=== PATIENT | female | born 1985 | race Caucasian/White ===

== ENCOUNTER 2019-01-01 11:22 | Emergency (ER) | payer OTHER ==
[2004-09-22 19:26] VITALS: BP 115/65
[~2019-01-01] VITALS: Ht 157.5 cm; Wt 78.6 kg
[~2019-01-01 11:22] MED LIST: BIRTH CONTROL PILL; FIORICET W/CODE1 CA1 PO; MOTRIN 600600 MG/TAB PO; NORCO 325 MG-51 TAB PO
[2019-01-01 11:36] VITALS: BP 138/76; TEMP 97.8
[2019-01-01 12:55] VITALS: PULSE 84
== END 2019-01-01 13:00 | disposition home or self-care (01) ==
LOC: COL.ER 11:22
DX: R05 Cough (principal); R50.9 Fever, unspecified

== ENCOUNTER 2019-01-31 12:46 | Emergency (ER) | payer OTHER ==
[2004-09-22 19:26] VITALS: BP 115/65
[~2019-01-31] VITALS: Ht 157.5 cm; Wt 78.2 kg
[2019-01-31 13:01] VITALS: TEMP 97.7
[2019-01-31 14:46] LABS: BASO # 0.1 (0.0-0.2); BASO % 0.6 % (0.0-2.0); EOS # 0.2 (0.0-0.7); EOS % 1.9 % (0-4.0); GRAN # 4.7 (1.4-6.5); GRAN % 60.6 % (42.2-75.2); HEMATOCRIT 38.9 % (37.0-47.0); HEMOGLOBIN 12.7 g/dl (12.5-16.0); LYMPH # 2.3 (1.2-3.4); LYMPH % 29.8 % (20.0-51.0); MEAN CELL VOLUME 88 fl (80.0-100.0); MEAN CORPUSCULAR HEMOGLOBIN 29 pg (27.0-31.0); MEAN CORPUSCULAR HGB CONC 33 g/dl (33.0-37.0); MEAN PLATELET VOLUME 9.2 fl (7.4-10.4); MONO # 0.5 (0.1-0.6); MONO % 6.8 % (1.7-9.3); PLATELET COUNT 289 K/mm3 (130-400); RED BLOOD COUNT 4.41 M/mm3 (4.10-5.30); REDCELL DISTRIBUTION WIDTH-CV 13.3 % (11.5-14.5)
[2019-01-31 14:53] LABS: COLLECTION METHOD CLEAN CATCH
[2019-01-31 15:00] LABS: MUCOUS Present /lpf; PH 6 (5-8); SQUAMOUS EPITHELIAL 0-2 /hpf; URINE APPEARANCE Clear; URINE BACTERIA Rare /hpf; URINE BILIRUBIN Negative (NEGATIVE); URINE BLOOD Negative (NEGATIVE); URINE COLOR Yellow; URINE GLUCOSE Negative (NEGATIVE); URINE KETONE Negative (NEGATIVE); URINE LEUKOCYTE ESTERASE Negative (NEGATIVE); URINE NITRATE Negative (NEGATIVE); URINE PROTEIN(semi-quant) Negative (NEGATIVE); URINE RBC 0-2 /hpf; URINE UROBILINOGEN Negative (NEGATIVE)
[2019-01-31 15:01] LABS: ALBUMIN 4.5 gm/dL (3.5-5.0); BILIRUBIN,TOTAL 0.4 mg/dL (0.0-1.0); C-REACTIVE PROTEIN 1.5 mg/dL (0.0-0.9); CALCIUM 9.1 mg/dL (8.4-10.2); CREATININE, serum 0.84 (0.52-1.25); POTASSIUM 3.7 mmol/L (3.4-5.0); TOTAL PROTEIN 7.3 gm/dL (6.4-8.2)
[2019-01-31] MEDS ORDERED: PROMETHAZINE12.5 M5 PO (16:31)
[2019-01-31] MEDS ORDERED: BENTYL 20MG20 MG/TAB PO (16:31)
[2019-01-31 17:05] VITALS: BP 107/65; PULSE 77
== END 2019-01-31 17:05 | disposition home or self-care (01) ==
LOC: COL.ER 12:46
PROVIDERS: Physician Assistant
DX: R11.2 Nausea with vomiting, unspecified (principal); R19.7 Diarrhea, unspecified; R10.30 Lower abdominal pain, unspecified; G43.909 Migraine, unspecified, not intractable, without status migrainosus; F17.210 Nicotine dependence, cigarettes, uncomplicated; Z90.710 Acquired absence of both cervix and uterus; Z88.5 Allergy status to narcotic agent
CPT/HCPCS: J2550; J7030

== ENCOUNTER 2019-04-09 10:12 | Emergency (ER) | payer OTHER ==
[2004-09-22 19:26] VITALS: BP 115/65
[~2019-04-09] VITALS: Ht 157.5 cm; Wt 76.8 kg
[~2019-04-09 10:12] MED LIST changes: +BENTYL 20MG20 MG/TAB PO; +PROMETHAZINE12.5 M5 PO
[2019-04-09 10:18] VITALS: BP 132/69; TEMP 97.7
[2019-04-09 11:49] VITALS: PULSE 100
== END 2019-04-09 11:50 | disposition home or self-care (01) ==
LOC: COL.ER 10:12
DX: J10.1 Influenza due to other identified influenza virus with other respiratory manifestations (principal); E06.3 Autoimmune thyroiditis; Z79.1 Long term (current) use of non-steroidal anti-inflammatories (NSAID); Z88.8 Allergy status to other drugs, medicaments and biological substances

== ENCOUNTER 2020-01-28 10:38 | Emergency (ER) | payer OTHER ==
[2004-09-22 19:26] VITALS: BP 115/65
[~2020-01-28] VITALS: Ht 157.5 cm; Wt 72.2 kg
[~2020-01-28 10:38] MED LIST changes: +ADDERALL XR25 MG PO; +ESTRACE0.5 MG PO; +LEVAQUIN 5500 MG/TA1 PO; +LITHIUM CA150 MG/CAP PO; +PROZAC 20MG20 MG PO; +SYNTHROID0.1 MG/TAB PO; +TOPAMAX200 MG PO; +TUSS PO; +VITAMIN D 1001000 IU PO; +XANAX .25M0.25 MG/TA PO
[2020-01-28 12:15] LABS: COLLECTION METHOD CLEAN CATCH
[2020-01-28 12:18] LABS: BASO # 0.1 (0.0-0.2); BASO % 0.7 % (0.0-2.0); EOS # 0.2 (0.0-0.7); EOS % 1.9 % (0-4.0); GRAN # 7.2 (1.4-6.5); GRAN % 75.3 % (42.2-75.2); HEMOGLOBIN 13.4 g/dl (12.5-16.0); LYMPH # 1.6 (1.2-3.4); LYMPH % 16.6 % (20.0-51.0); MEAN CELL VOLUME 87 fl (80.0-100.0); MEAN CORPUSCULAR HEMOGLOBIN 28 pg (27.0-31.0); MEAN CORPUSCULAR HGB CONC 33 g/dl (33.0-37.0); MEAN PLATELET VOLUME 9.3 fl (7.4-10.4); MONO # 0.5 (0.1-0.6); MONO % 5.2 % (1.7-9.3); PLATELET COUNT 388 K/mm3 (130-400); RED BLOOD COUNT 4.73 M/mm3 (4.10-5.30); REDCELL DISTRIBUTION WIDTH-CV 12.7 % (11.5-14.5)
[2020-01-28 12:23] LABS: MUCOUS Present /lpf; PH 5 (5-8); SQUAMOUS EPITHELIAL 0-2 /hpf; URINE APPEARANCE Hazy; URINE BACTERIA Rare /hpf; URINE BILIRUBIN Negative (NEGATIVE); URINE BLOOD Negative (NEGATIVE); URINE COLOR Yellow; URINE GLUCOSE Negative (NEGATIVE); URINE KETONE Negative (NEGATIVE); URINE LEUKOCYTE ESTERASE Negative (NEGATIVE); URINE NITRATE Negative (NEGATIVE); URINE PROTEIN(semi-quant) Negative (NEGATIVE); URINE RBC 0-2 /hpf; URINE UROBILINOGEN Negative (NEGATIVE)
[2020-01-28 12:41] LABS: ALBUMIN 4.7 gm/dL (3.5-5.0); BILIRUBIN,TOTAL 0.5 mg/dL (0.0-1.0); C-REACTIVE PROTEIN 1.4 mg/dL (0.0-0.9); CALCIUM 8.8 mg/dL (8.4-10.2); CREATININE, serum 0.85 (0.52-1.25); POTASSIUM 3.6 mmol/L (3.4-5.0); TOTAL PROTEIN 7.6 gm/dL (6.4-8.2)
[2020-01-28] MEDS ORDERED: ZITHROMAX Z PA250 MG PO (13:31)
[2020-01-28] MEDS ORDERED: PROAIR HFA0.09 MG/AC IH (13:31)
[2020-01-28] MEDS ORDERED: ZOFRAN ODT4 MG PO ×2 (13:31)
[2020-01-28] MEDS ORDERED: PREDNISONE20 MG PO (13:31)
[2020-01-28 13:52] VITALS: BP 114/68; PULSE 74; TEMP 98
[2020-01-28] MEDS ORDERED: PHENERGAN 25 TA25 MG PO (15:49)
== END 2020-01-28 13:55 | disposition home or self-care (01) ==
LOC: COL.ER 10:38
PROVIDERS: Nurse Practitioner
DX: J20.9 Acute bronchitis, unspecified (principal); R11.0 Nausea; G43.909 Migraine, unspecified, not intractable, without status migrainosus; F41.9 Anxiety disorder, unspecified; F90.9 Attention-deficit hyperactivity disorder, unspecified type; F31.9 Bipolar disorder, unspecified; E06.3 Autoimmune thyroiditis; F17.210 Nicotine dependence, cigarettes, uncomplicated; Z20.828 Contact with and (suspected) exposure to other viral communicable diseases; Z88.8 Allergy status to other drugs, medicaments and biological substances
CPT/HCPCS: J1885; J2550; J7030